=== PATIENT | male | born 1970 | race Caucasian/White ===

== ENCOUNTER 2021-08-30 03:41 | Emergency (ER) | payer SELFPAY ==
[~2021-08-30] VITALS: Ht 188 cm; Wt 118.2 kg
[~2021-08-30 03:41] MED LIST: MOTRIN 800800 MG/TAB PO; NO HOME MEDICATIONS; NORCO 325 MG-51 TAB PO
[2021-08-30 03:46] VITALS: TEMP 97.4
[2021-08-30] MEDS ORDERED: LIPITOR 80MG80 MG PO (03:51)
[2021-08-30] MEDS ORDERED: TOPROL XL 50MG50 MG PO (03:51)
[2021-08-30 05:03] VITALS: BP 134/88; PULSE 67
== END 2021-08-30 05:10 | disposition home or self-care (01) ==
LOC: COL.ER 03:41
DX: S61.512A Laceration without foreign body of left wrist, initial encounter (principal); S30.0XXA Contusion of lower back and pelvis, initial encounter; F17.290 Nicotine dependence, other tobacco product, uncomplicated; W26.8XXA Contact with other sharp object(s), not elsewhere classified, initial encounter; W18.30XA Fall on same level, unspecified, initial encounter; Y92.59 Other trade areas as the place of occurrence of the external cause; Y99.0 Civilian activity done for income or pay